=== PATIENT | male | born 1990 | race American Indian/Alaskan Native ===

== ENCOUNTER 2020-09-13 12:50 | Emergency (ER) | payer MEDICARE ==
[2020-09-13 13:42] VITALS: BP 132/81
--- NOTE | 2020-09-13 13:48 | Emergency Department Report ---
ED Recheck HPI - General Chief Complaint: Medical Clearance Stated Complaint: HEALTH MENTAL Time Seen by Provider: 09/13/20 13:44 Source: patient Mode of arrival: Ambulatory Limitations: No Limitations - History of Present Illness Initial Comments: Patient is a 30-year-old male presents emergency room with complaints of medication refill. He states he has been out of his medication for 2 months. He states he is supposed to be taking olanzapine. he states he recently relocated from [place] and has not yet set up primary care or mental health in this area. He denies any physical complaints at this time. He denies any SI, HI, hallucinations. He has a past medical history of schizophrenia. He denies any medication allergies. - Related Data Previous Rx's Medication Instructions Recorded Last Taken Type OLANzapine [Zyprexa] 10 mg PO DAILY #30 tablet 09/13/20 Unknown Rx ED Review of Systems ROS: Stated complaint: HEALTH MENTAL Other details as noted in HPI Comment: All other systems reviewed and negative ED Past Medical Hx - Past Medical History Previous Medical History?: Yes Hx Psychiatric Treatment: Yes (Schizophrenia) - Medications Home Medications: Home Medications Medication Instructions Recorded Confirmed Last Taken Type OLANzapine [Zyprexa] 10 mg PO DAILY #30 tablet 09/13/20 Unknown Rx ED Physical Exam - General Limitations: No Limitations General appearance: alert, in no apparent distress - Head Head exam: Present: atraumatic, normocephalic - Eye Eye exam: Present: normal appearance - ENT ENT exam: Present: mucous membranes moist - Respiratory Respiratory exam: Present: normal lung sounds bilaterally. Absent: respiratory distress, wheezes, rhonchi, stridor, chest wall tenderness, accessory muscle use, decreased breath sounds, prolonged expiratory - Cardiovascular Cardiovascular Exam: Present: regular rate, normal rhythm, normal heart sounds. Absent: systolic murmur, diastolic murmur, rubs, gallop - Neurological Exam Neurological exam: Present: alert, oriented X3 - Psychiatric Psychiatric exam: Present: normal affect, normal mood. Absent: homicidal ideation, suicidal ideation - Skin Skin exam: Present: warm, dry, intact ED Course Vital Signs 09/13/20 13:41 Temperature 98.5 F Pulse Rate 96 H Respiratory 18 Rate Blood Pressure 132/81 [Right] O2 Sat by Pulse 99 Oximetry ED Recheck [facility] - Medical Decision Making Patient is a 30-year-old male presents emergency room with complaints of medication refill. He states he has been out of his medication for 2 months. He states he is supposed to be taking olanzapine. he states he recently relocated from [place] and has not yet set up primary care or mental health in this area. He denies any physical complaints at this time. He denies any SI, HI, hallucinations. He has a past medical history of schizophrenia. He denies any medication allergies. Vitals are normal. Discussed case with Dr. Roper, ER attending who advised to give patient 30-day supply of olanzapine. He states he takes 10 mg daily. Patient has no signs of acute psychosis at this time. Discussed the importance of outpatient mental health follow-up and primary care follow-up. Discuss strict return precautions. Advised patient Please take medication as prescribed. Follow-up with outpatient mental health. Follow-up with a primary care doctor. Return to emergency room immediately for any new or worsening symptoms or if you begin feeling thoughts of wanting to hurt yourself or others. For access to services and immediate crisis help, call the [facility] Line ([email or web address]) at , available 23/11. Critical care attestation.: If time is entered above; I have spent that time in minutes in the direct care of this critically ill patient, excluding procedure time. ED Disposition Clinical Impression: Medication refill, Hx of schizophrenia Disposition: DC-01 TO HOME OR SELFCARE Is pt being admited?: No Does the pt Need Aspirin: No Condition: Stable Instructions: Schizophrenia Additional Instructions: Please take medication as prescribed. Follow-up with outpatient mental health. Follow-up with a primary care doctor. Return to emergency room immediately for any new or worsening symptoms or if you begin feeling thoughts of wanting to hurt yourself or others. For access to services and immediate crisis help, call the [facility] ([facility]) at , available 23/11. Prescriptions: OLANzapine [Zyprexa] 10 mg PO DAILY #30 tablet Referrals: [facility] [Outside] - 3-5 Days MEME MCGUIRE MD [Staff Physician] - 3-[address] [facility] [Provider Group] - 3-5 Days Time of Disposition: 13:46 Print Language: ROMANSH
== END 2020-09-13 17:53 | disposition home or self-care (01) ==
LOC: ED 12:50
DX: F20.9 Schizophrenia, unspecified (principal); Z76.0 Encounter for issue of repeat prescription; Z79.899 Other long term (current) drug therapy
CPT/HCPCS: 99281